=== PATIENT | female | born 1995 | race Caucasian/White ===

== ENCOUNTER 2017-06-09 20:27 | Outpatient (CLI) | payer OTHER ==
[~2017-06-09 20:27] MED LIST: ALBUTEROL SULF8.5 GM IH; DOCUSATE SODIU100 MG PO; ENDOCET 5-3251 EACH PO; GLYBURIDE5 MG PO; HYDROCODON-ACE1 EAC7 PO; IBUPROFEN800 MG PO; NOHOMEMEDS; NORCO 5/3251 TABLET PO; PREDNISONE20 MG PO; PRENATAL COMPL1 EACH PO; PRENATAL TABLE1 EAC3 PO
[2017-06-09 20:38] VITALS: BP 127/61
[2017-06-09] MEDS ORDERED: PRENATAL TABLE1 EAC3 PO (21:14)
== END 2017-06-09 21:22 | disposition home or self-care (01) ==
LOC: LDRP-OP → 2WEST 20:29 → LDRP-OP 08-18 16:12
DX: O36.8130 Decreased fetal movements, third trimester, not applicable or unspecified (principal); Z3A.34 34 weeks gestation of pregnancy; Z87.891 Personal history of nicotine dependence
CPT/HCPCS: 59025; G0378

== ENCOUNTER 2017-06-22 18:01 | Outpatient (CLI) | payer OTHER ==
[2017-06-22 19:20] VITALS: BP 106/55
[2017-06-22 19:45] LABS: ADD MIUA? YES; BILIRUBIN NEGATIVE; BLOOD NEGATIVE; COLOR YELLOW ((YELLOW)); GLUCOSE (STRIP) NEGATIVE; KETONES NEGATIVE; LEUKOCYTES NEGATIVE; NITRITE NEGATIVE; PROTEIN (STRIP) NEGATIVE; UROBILINOGEN 0.2 MG/DL (0.2-1.0)
[2017-06-22 19:50] VITALS: BP 116/65
[2017-06-22 20:02] LABS: BACTERIA RARE /HPF; CALCIUM OXALATE CRYSTALS 1+ /HPF; EPITHELIAL CELLS 1+ /HPF; MUCUS 2+ /LPF; RED BLOOD CELLS 0-5 /HPF (0-5); UCUL ADDED? NO; WHITE BLOOD CELLS 0-5 /HPF (0-5)
[2017-06-22 20:19] VITALS: BP 138/75
[2017-06-22 20:49] VITALS: BP 122/75
== END 2017-06-22 21:25 | disposition home or self-care (01) ==
LOC: LDRP-OP 18:01 → 2WEST 18:02 → LDRP-OP 08-18 21:54
PROVIDERS: Advanced Practice Midwife
DX: O26.893 Other specified pregnancy related conditions, third trimester (principal); R11.2 Nausea with vomiting, unspecified; O12.03 Gestational edema, third trimester; O26.813 Pregnancy related exhaustion and fatigue, third trimester; O40.3XX0 Polyhydramnios, third trimester, not applicable or unspecified; Z3A.36 36 weeks gestation of pregnancy
CPT/HCPCS: 59025; 81003; G0378

== ENCOUNTER 2017-07-13 06:25 | Inpatient (IN) | payer OTHER ==
[~2017-07-13] VITALS: Ht 154.9 cm; Wt 95.5 kg
[2017-07-13 07:00] LABS: EOSINOPHIL (%) 0.8 % (0-5); EOSINOPHIL COUNT 0.1 K/uL (0-0.3); HEMATOCRIT 39.6 % (36.0-46.0); IMMATURE GRANULOCYTE (%) 0.5 % (0.0-0.7); IMMATURE GRANULOCYTE COUNT 0.1 K/uL; INSTRUMENT ABS NEUTROPHIL CT 9.6 K/uL; LYMPHOCYTE COUNT 2.6 K/uL (1.0-2.8); MCH 30.4 PG (29.0-34.0); MCHC 34.6 G/DL (30.0-36.0); MEAN PLAT.VOLUME 11.3 uM^3 (9.5-12.4); MONOCYTE (%) 4.5 % (3-12); MONOCYTE COUNT 0.6 K/uL (0-0.8); NEUTROPHIL COUNT 9.6 K/uL (1.8-6.4); PLATELET COUNT 222 K/uL (156-360); RBC DIS.WIDTH-CV 14.2 % (11.8-14.6); RBC DIS.WIDTH-SD 45.4 % (39-53)
[2017-07-13 07:15] VITALS: BP 128/76
[2017-07-13 11:57] VITALS: BP 110/73
[2017-07-13 14:18] VITALS: BP 124/70
[2017-07-13 15:20] VITALS: BP 115/57
[2017-07-13 17:00] VITALS: BP 117/66
[2017-07-14 07:48] LABS: EOSINOPHIL (%) 0.3 % (0-5); HEMATOCRIT 30.7 % (36.0-46.0); IMMATURE GRANULOCYTE (%) 0.4 % (0.0-0.7); INSTRUMENT ABS NEUTROPHIL CT 7.1 K/uL; LYMPHOCYTE COUNT 2.3 K/uL (1.0-2.8); MCHC 32.2 G/DL (30.0-36.0); MONOCYTE (%) 6.9 % (3-12); MONOCYTE COUNT 0.7 K/uL (0-0.8); NEUTROPHIL (%) 69.3 % (45-76); NEUTROPHIL COUNT 7.1 K/uL (1.8-6.4); RBC DIS.WIDTH-CV 14.6 % (11.8-14.6); RBC DIS.WIDTH-SD 47.5 % (39-53); WHITE BLOOD COUNT 10.2 K/uL (4.1-10.2)
[2017-07-14 07:49] LABS: RED BLOOD COUNT 3.41 M/uL (3.80-5.20)
[2017-07-14 08:20] LABS: MEAN PLAT.VOLUME 11.2 uM^3 (9.5-12.4); PLAT.SUFFICIENCY ADEQUATE
[2017-07-14 08:29] LABS: PLATELET COUNT 141 K/uL (156-360)
[2017-07-14 08:56] VITALS: BP 139/60
[2017-07-14 11:08] VITALS: BP 116/57
[2017-07-14 19:46] VITALS: BP 145/69
[2017-07-14 23:13] VITALS: BP 112/59
[2017-07-15 03:24] VITALS: BP 129/61
[2017-07-15 07:11] VITALS: BP 118/64
[2017-07-15] MEDS ORDERED: IBUPROFEN800 MG PO (13:02)
[2017-07-15] MEDS ORDERED: ENDOCET 5-3251 EACH PO (13:02)
[2017-07-15] MEDS ORDERED: CHROMAGEN,1 CAPSULE PO (13:02)
== END 2017-07-15 14:55 | disposition home or self-care (01) | DRG 765 ==
LOC: 2WEST 06:25 → 2SOUTH 15:46 → 2WEST 07-15 14:55
PROVIDERS: Obstetrics & Gynecology Obstetrics
PROC: 10D00Z1 Extraction of Products of Conception, Low, Open Approach (ICD-10-PCS; principal; 2017-07-13)
DX: O34.211 Maternal care for low transverse scar from previous cesarean delivery (principal); O40.3XX0 Polyhydramnios, third trimester, not applicable or unspecified; O99.02 Anemia complicating childbirth; D62 Acute posthemorrhagic anemia; O99.214 Obesity complicating childbirth; E66.9 Obesity, unspecified; O99.824 Streptococcus B carrier state complicating childbirth; Z3A.39 39 weeks gestation of pregnancy; Z37.0 Single live birth; Z68.41 Body mass index [BMI] 40.0-44.9, adult; Z23 Encounter for immunization; Z87.891 Personal history of nicotine dependence
CPT/HCPCS: 85025; 86850; 86900; 86901; 90686; J0690; J1885; J2274; J2405; J3010; J7050; J7120